=== PATIENT | male | born 1980 | race American Indian/Alaskan Native ===

== ENCOUNTER 2021-07-24 05:52 | Day surgery (SDC) | payer OTHER ==
[2021-07-24] MEDS ORDERED: MIDAZOLAM 2 MG/2 ML INJ IV NR (06:00)
[2021-07-24] MEDS ORDERED: GABAPENTIN 300 MG CAP PO NR (06:00)
[2021-07-24] MEDS ORDERED: LACTATED RINGERS 1,000 ML IV SCH (06:00)
[2021-07-24] MEDS ORDERED: CELECOXIB 200 MG CAP PO NR (06:00)
[2021-07-24] MEDS ORDERED: ACETAMINOPHEN 500 MG TAB PO SCH (06:00)
[2021-07-24] MEDS ORDERED: BACTERIOSTATIC SODIUM CHLORIDE 0.9% 30 ML VIAL INFILTRATI ONE (06:55)
[2021-07-24] MEDS ORDERED: ceFAZolin/STERILE WATER 2 GM/20 ML SYRINGE IV NR (07:00)
[2021-07-24] MEDS ORDERED: HYDROcodone/ACETAMINOPHEN 5-325 MG TAB PO PRN (07:24)
[2021-07-24] MEDS ORDERED: HYDROmorphone 1 MG/1 ML INJ IV PRN (07:24)
[2021-07-24] MEDS ORDERED: ONDANSETRON 4 MG/2 ML INJ IV PRN (07:24)
--- NOTE | 2021-07-24 07:24 | Anesthesia Day of Surgery ---
Anesthesia Day of Surgery - Day of Surgery Patient Examined: Yes Patient H&P Reviewed: Yes Patient is NPO: Yes
--- NOTE | 2021-07-24 07:24 | Anesthesia Consultation ---
Anesthesia Consult and Med Hx Date of service: 07/24/21 - Airway Anesthetic Teeth Evaluation: Good, Chipped (#7) ROM Head & Neck: Adequate Mental/Hyoid Distance: Adequate Mallampati Class: Class III Intubation Access Assessment: Possibly Difficult - Pre-Operative Health Status ASA Pre-Surgery Classification: ASA1 Proposed Anesthetic Plan: General - Pulmonary Hx Smoking: Yes (occasional cigars) Hx Respiratory Symptoms: No Hx Sleep Apnea: No (ALAN PRE SCREEN LOW RISK) - Cardiovascular System Hx Hypertension: No Hx Heart Attack/AMI: No - Central Nervous System CVA: No - Endocrine Hx Renal Disease: No Hx Liver Disease: No Hx Insulin Dependent Diabetes: No Hx Non-Insulin Dependent Diabetes: No Hx Thyroid Disease: No - Other Systems Hx Obesity: No - Additional Comments Anesthesia Medical History Comments: No hx anesthetic complications.
[2021-07-24] MEDS ORDERED: LIDOCAINE (1%) 10 MG/1 ML VIAL 20 ML MDV ONE (07:31)
[2021-07-24] MEDS ORDERED: BUPIVACAINE/PF (0.5%) 5 MG/1 ML 30 ML VIAL INFILTRATI ONE ×2 (07:31→09:15)
[2021-07-24] MEDS ORDERED: LIDOCAINE MPF (2%) 20 MG/1 ML VIAL 5 ML ONE (07:33)
[2021-07-24] MEDS ORDERED: ROCURONIUM 50 MG/5 ML INJ IV ONE ×2 (07:33→09:31)
[2021-07-24] MEDS ORDERED: propofoL 200 MG/20 ML VIAL IV ONE (07:34)
[2021-07-24] MEDS ORDERED: fentaNYL 100 MCG/2 ML INJ ONE ×2 (07:34→11:26)
[2021-07-24] MEDS ORDERED: WATER FOR IRRIG STERILE 1,500 ML BOTTLE IR ONE (09:16)
[2021-07-24] MEDS ORDERED: LIDOCAINE (1%) 10 MG/1 ML VIAL 20 ML MDV INFILTRATI ONE (09:16)
[2021-07-24] MEDS ORDERED: ONDANSETRON 4 MG/2 ML INJ ONE (09:28)
[2021-07-24] MEDS ORDERED: KETOROLAC 30 MG/1 ML INJ ONE (09:28)
[2021-07-24] MEDS ORDERED: NEOSTIGMINE 10MG/10 ML INJ MDV ONE (09:31)
[2021-07-24] MEDS ORDERED: GLYCOPYRROLATE 0.4 MG/2 ML INJ ONE ×2 (09:31)
[2021-07-24] MEDS ORDERED: LACTATED RINGERS 1,000 ML ONE (10:05)
--- NOTE | 2021-07-24 11:45 | Short Stay Summary ---
Short Stay Documentation Date of service: 07/24/21 - History Principal diagnosis: right inguinal hernia H&P: obtained from office - Allergies and Medications Current Medications: Allergies No Known Allergies Allergy (Verified 07/17/21 16:22) Home Medications Medication Instructions Recorded Confirmed Last Taken Type Hair, Skin and Nails Gummies 1 tab PO DAILY 07/16/21 07/24/21 07/17/21 09:00 History One-Daily Multi-Vitamin 1 tab PO DAILY 07/16/21 07/24/21 07/17/21 09:00 History Zinc 1 tab PO DAILY 07/16/21 07/24/21 07/17/21 09:00 History Active Medications Acetaminophen (Acetaminophen 500 Mg Tab) 1,000 mg PO PREOP ANN Last Admin: 07/24/21 07:10 Dose: 1,000 mg Documented by: Hydrocodone Bitart/Acetaminophen (Hydrocodone/Acetaminophen 5-325 Mg Tab) 2 each PO ONCE PRN PRN Reason: Pain, Moderate (4-6) Stop: 07/24/21 12:00 Cefazolin Sodium (Cefazolin/Sterile Water 2 Gm/20 Ml Syringe) 2 gm IV PREOP NR Stop: 07/24/21 20:00 Celecoxib (Celecoxib 200 Mg Cap) 200 mg PO PREOP NR Stop: 07/24/21 23:59 Last Admin: 07/24/21 07:10 Dose: 200 mg Documented by: Gabapentin (Gabapentin 300 Mg Cap) 300 mg PO PREOP NR Stop: 07/24/21 23:59 Last Admin: 07/24/21 07:10 Dose: 300 mg Documented by: Hydromorphone HCl (Hydromorphone 1 Mg/1 Ml Inj) 0.5 mg IV Q10MIN PRN PRN Reason: Pain , Severe (7-10) Stop: 07/24/21 23:00 Lactated Ringer's (Lactated Ringers) 1,000 mls @ 100 mls/hr IV DIRECT ANN Stop: 07/24/21 23:59 Last Admin: 07/24/21 07:05 Dose: 100 mls/hr Documented by: Midazolam HCl (Midazolam 2 Mg/2 Ml Inj) 2 mg IV PREOP NR Stop: 07/24/21 23:59 Ondansetron HCl (Ondansetron 4 Mg/2 Ml Inj) 4 mg IV ONCE PRN PRN Reason: Nausea And Vomiting Stop: 07/24/21 14:00 - Brief post op/procedure progress note Date of procedure: 07/24/21 Pre-op diagnosis: right inguinal hernia Post-op diagnosis: same Procedure: robotic assisted right inguinal hernia repair with mesh Anesthesia: GETA, local, other (right ilioinguinal nerve block) Findings: Large right indirect inguinoscrotal hernia with redundant, thickened sac Surgeon: SAMARIA GUZMAN Wood Carver Hand: LIN MIRANDA Estimated blood loss: other (30cc) Pathology: none Condition: stable - Hospital course Hospital course: Pt observed in PACU and discharged home in stable condition when criteria met - Disposition Condition at discharge: Good Disposition: 01 HOME / SELF CARE / HOMELESS Short Stay Discharge Plan Activity: other (no heavy lifting x 6 weeks) Diet: regular Wound: open to air, per your surgeon's advice Additional Instructions: see printed instructions Follow up with: PRIMARY CARE,MD [Primary Care Provider] - 7 Days SAMARIA GUZMAN DO [Staff Physician] - 14 Days Prescriptions: Gabapentin 300 mg PO BID #6 capsule Ibuprofen [Motrin 800 MG tab] 800 mg PO Q8HR PRN #30 tablet PRN Reason: Pain, Moderate (4-6) HYDROcodone/APAP 5-325 [Hooper 5-325 mg TAB] 1 each PO Q6H PRN #20 tablet PRN Reason: Pain , Severe (7-10)
--- NOTE | 2021-07-24 13:16 | Post Anesthesia Evaluation ---
- Post Anesthesia Evaluation Patient Participated: Yes Airway Patent: Yes Stable Respiratory Function: Yes Nausea/Vomiting: No Temp > 96.8F: Yes Pain Manageable: Yes Adequeate Hydration: Yes Anesthesia Complications: No
[2021-07-24 19:32] VITALS: BP 126/80
--- NOTE | 2021-07-25 17:30 | Operative Report ---
Operative Report Operative Report: Date of procedure: 07/24/21 11:41 Pre-op diagnosis: right inguinal hernia Post-op diagnosis: same Procedure: robotic assisted right inguinal hernia repair with mesh Anesthesia: GETA, local, other (right ilioinguinal nerve block) Findings: Large right indirect inguinoscrotal hernia with redundant, thickened sac Surgeon: SAMARIA GUZMAN Spare Fixer: LIN MIRANDA Estimated blood loss: other (30cc) Pathology: none Condition: stable Hospital course: Pt observed in PACU and discharged home in stable condition when criteria met HPI and indication: Patient is a 41-year-old male who presented to the surgery clinic for evaluation of a bulge in his right groin. He was found to have a right inguinal scrotal hernia which was reducible. It was recommended that hernia be repaired. All risk, benefits, alternatives to surgery were discussed and questions answered. Consent was obtained. Procedure in detail: Patient was identified in the preoperative area, take back to operating room placed on operative table in supine position. After anesthesia was induced both arms were tucked and all bony prominences padded appropriately. The abdomen and b/l groins were then prepped and draped in usual sterile fashion and a timeout performed. Local anesthetic was infiltrated to skin at the intended incision sites. A supraumbilical incision was made through which a Veress needle was inserted. Veress needle positioning was confirmed using saline drop test and the abdomen insufflated to 15 mmHg. Once the abdomen was insufflated, the Veress needle was removed and a 5 mm Optiview trocar was placed through this incision. The abdomen was inspected and there was no underlying injury to any of the abdominal structures. Patient was placed in Trendelenburg and the pelvis examined. There was a right inguinal hernia and no obvious hernia on the right. At this point, an 8 mm right upper quadrant and left upper quadrant robotic trocars were then placed under direct visualization. The 5 mm supraumbilical trocar was removed and replaced with a 12 mm balloon trocar under direct visualization. A Ray-Chadwick was placed into the abdomen. The robot was then docked. A fenestrated bipolar was placed into arm #2 and a monopolar scissor in arm #1. The surgeon was then transferred to the console. First, I created a right sided preperitoneal flap. The peritoneum was scored approximately 5 to 6 cm from the hernia defect. The peritoneum was then incised from the midline to the ASIS. The preperitoneal flap was then developed in an avascular plane. I first defined the medial margin by dissecting to the pubic tubercle. The pubic tubercle was cleared of overlying fatty tissue using blunt dissection. I then created the lateral margin in a similar fashion. Great care was taken to avoid injury to any nerves. There was a large indirect right inguinoscrotal hernia and the hernia sac was gently reduced using blunt dissection and transecting cremasteric fibers with electrocautery. During the dissection, the cord structures were identified and protected. The cord structures and vas deferens were visualized throughout the entire dissection. The dissection time was prolonged due to a very redundant sac which was chronically scarred to the surrounding tissue. Once the hernia sac was completely reduced, the peritoneal flap was checked for hemostasis. Any additional cremasteric fibers that were were tenting up the peritoneum were divided. Hemostasis was carefully ensured. The hernia was repaired using a RIGHT large 3D max mesh. The mesh along with suture material was placed into the abdomen by the tax accounting assistant. The mesh was positioned into the preperitoneal flap in the usual fashion. The medial portion of the mesh was sutured to [place]'s ligament using an interrupted 2-0 Vicryl stitch. The lateral aspect of the mesh was sutured to the anterior lateral abdominal wall using a 2-0 Vicryl interrupted stitch. The mesh was seen to lay flat in the pocket with excellent coverage. A 18 [place] Angiocath was inserted through the right lower quadrant under direct visualization into the pocket. The peritoneum was then reapproximated using 3-0 running V-Loc stitch. A defect in the peritoneum was repaired using a running 3-0 VLoc stitch. The entirety of the mesh was covered with peritoneum. The robot was then undocked and the surgeon scrubbed back in. The remainder of the case was performed laparoscopically. All sharp materials along with a Ray-Chadwick were removed from the abdomen under direct visualization. The 12 mm port was removed and the fascia closed using a interrupted 0 Vicryl stitch. The abdomen was then slowly desufflated and the mesh was seen to lay flat in the preperitoneal space. The remaining trocars were removed and any scrotal area evacuated through the Angiocath. Skin incisions were once again infiltrated with local anesthetic. RIGHT ilioinguinal nerve block was also performed with 5 cc of local anesthetic. The skin incisions were approximated with 4-0 Monocryl subcuticular stitches and skin glue. At the end of the case all sponge, instrument, sharp counts were correct x2. Patient was awoken from anesthesia and Dougherty catheter removed. Both testicles were palpated in the scrotum in anatomic position. The patient was taken to PACU in stable condition.
== END 2021-07-24 13:45 | disposition home or self-care (01) ==
LOC: OR 05:52
PROVIDERS: ATTEND Surgery
DX: K40.90 Unilateral inguinal hernia, without obstruction or gangrene, not specified as recurrent (principal); F17.210 Nicotine dependence, cigarettes, uncomplicated; Z79.899 Other long term (current) drug therapy; Z98.890 Other specified postprocedural states
CPT/HCPCS: 49650; C1781; J0690; J1170; J1885; J2405; J2704; J2710; J3010; J7120; S2900